=== PATIENT | female | born 1970 | race Caucasian/White ===

== ENCOUNTER 2020-06-24 16:57 | Emergency (ER) | payer BC, SELFPAY ==
[2020-06-24 17:16] VITALS: BP 121/81; PULSE 128; RESP 16; TEMP 36.3; O2SAT 100
--- NOTE | 2020-06-24 17:48 | ED.FEMALEGU ---
HPI - Female Genitourinary General Chief complaint: Urogenital-Female Stated complaint: bladder infection Source: patient Mode of arrival: ambulatory Limitations: no limitations History of Present Illness HPI Narrative: Patient is a 49-year-old female who presents complaining of urinary frequency, urgency and dysuria x2 days. She reports urine is cloudy. She reports a history of UTIs and is seen by urology. She reports last UTI over 3 months ago. She denies other complaints at this time MD elicited complaint: UTI Pertinent past history: recurrent UTIs Review of Systems Review of Systems: Narrative: CONSTITUTIONAL: Denies fever, chills, or sweats. EYES: Denies visual changes, redness, or discharge. ENT: Denies rhinorrhea, congestion, sore throat, or otalgia. CARDIOVASCULAR: Denies chest pain, palpitations, or edema. RESPIRATORY: Denies cough or dyspnea. GASTROINTESTINAL: Denies abdominal pain, nausea, vomiting, or diarrhea. GENITOURINARY: Frequency, urgency and dysuria x2 days SKIN: Denies rash or itching. MUSCULOSKELETAL: Denies back pain, joint pain, or myalgia. NEUROLOGIC: Denies headache, numbness, dizziness, or weakness. PSYCHIATRIC: Denies anxiety or depression. [facility] Past Medical History Medical History HTN (hypertension) Hypercholesterolemia Migraine UTI (urinary tract infection) Surgical History Surgical History H/O cystoscopy Family History Family History Other No significant family history Social History Social History (Updated 06/24/20 @ 17:53 by MAGDALENA Griggs) Smoking status: Never smoker Alcohol intake: never Substance use: never Living arrangements: with family Exam Narrative: Exam Narrative: GENERAL: Well-appearing, well-nourished, and in no acute distress. HEAD: Normocephalic, atraumatic. EYES: No redness or drainage. ENT: Mucous membranes pink and moist. CHEST: No respiratory distress. HEART: Regular rate and rhythm. No murmur appreciated. Normal peripheral pulses. EXTREMITIES: Normal range of motion. No edema. SKIN: Warm, dry, no rash. NEURO: No focal deficits. Alert and oriented x3. Gait steady. PSYCH: Normal affect. No signs of depression or anxiety. Course Vital Signs Vital signs: Vital Signs Temperature 36.3 C L 06/24/20 17:16 Pulse Rate 128 H 06/24/20 17:16 Respiratory Rate 16 06/24/20 17:16 Blood Pressure 121/81 06/24/20 17:16 Pulse Oximetry 100 06/24/20 17:16 Temperature 36.3 C L 06/24/20 17:16 Pulse Rate 128 H 06/24/20 17:16 Respiratory Rate 16 06/24/20 17:16 Blood Pressure 121/81 06/24/20 17:16 Pulse Oximetry 100 06/24/20 17:16 Reviewed MDM - Female Genitourinary MDM Narrative Medical decision making narrative: Patient's urine shows leukocytes and blood. Patient has a history of UTIs. Patient to be treated symptomatically at this time. Patient to follow-up with urologist or PCP in 5 days if symptoms persist. Patient is stable for discharge to home with outpatient follow-up as discussed. Differential Diagnosis Differential diagnosis: Likely urinary tract infection, vaginitis, cystitis and other (Pyelonephritis, kidney stone) Lab Data Labs: Urine Glucose Negative Reference Range: Negative Urine Bilirubin Negative Reference Range: Negative Urine Ketone Negative Reference Range: Negative Urine Specific [place] 1.025 Reference Range:1.001-1.035 Urine Blood Trace Reference Range: Negative * *
== END 2020-06-24 18:00 | disposition home or self-care (01) ==
PROVIDERS: Emergency Provider Nurse Practitioner; PCP Family Medicine Sports Medicine
DX: N30.00 Acute cystitis without hematuria (principal); I10 Essential (primary) hypertension; E78.00 Pure hypercholesterolemia, unspecified
CPT/HCPCS: 81003; 87077; 87086; 87088; 87186; 99213; G0463

== ENCOUNTER 2022-08-12 11:16 | Outpatient (CLI) | payer MEDICARE, BC, SELFPAY ==
[2022-08-12 19:47] LABS: Basophils Absolute Auto 0.1 K/mm3 (0.0-0.1); Basophils Percent Auto 1.2 % (0.2-1.2); Eosinophils Absolute Auto 0.2 K/mm3 (0-0.3); Eosinophils Percent Auto 2.6 % (0-4.4); Hematocrit 43.6 % (37.0-47.0); Immature Granulocyte Absolute 0.03 K/mm3 (0.00-0.031); Immature Granulocyte Percent A 0.4 % (0-0.5); Lymphocytes Absolute Auto 1.51 K/mm3 (0.9-3.2); Lymphocytes Percent Auto 21.7 % (18.3-44.2); Mean Corpuscular HGB Conc 32.1 g/dl (32-36); Mean Corpuscular Hemoglobin 29.2 pg (26-34); Mean Corpuscular Volume 90.8 fl (80-100); Mean Platelet Volume 9.4 fl (7.4-10.4); Monocytes Absolute Auto 0.6 K/mm3 (0.1-0.6); Monocytes Percent Auto 8.9 % (2.6-8.5); Neutrophils Absolute Auto 4.5 K/mm3 (1.3-6.7); Neutrophils Percent Auto 65.2 % (45.5-73.1); Platelet Count Result 445 k/mm3 (150-375); Red Cell Distribution Width 12.9 % (11.5-14.5)
[2022-08-12 21:25] LABS: Alanine Aminotransferase 27 U/L (6-35); Albumin Level 4.4 g/dL (3.5-5.1); Alkaline Phosphatase 126 U/L (38-126); Anion Gap 7 mmol/L (8-16); Aspartate Amino Transferase 51 U/L (14-36); Bilirubin,Total 0.3 mg/dL (0.2-1.3); Blood Urea Nitrogen 9 mg/dL (7-17); Carbon Dioxide 22 mmol/L (22-30); Chloride 105 mmol/L (98-107); Cholesterol 215 mg/dL (0-200); Estimated Glomerular Filt Rate > 60; Glucose 81 mg/dL (65-110); HDL Direct 66 mg/dL; Potassium 3.9 mmol/L (3.4-5.0); Sodium 134 mmol/L (137-145); Triglycerides 159 mg/dL (<150)
[2022-08-12 21:35] LABS: LDL Cholesterol Direct 109 mg/dL
== END 2022-08-12 11:17 | disposition home or self-care (01) ==
PROVIDERS: PCP Family Medicine; Visit Provider Family Medicine
DX: G43.909 Migraine, unspecified, not intractable, without status migrainosus (principal); E78.00 Pure hypercholesterolemia, unspecified; I10 Essential (primary) hypertension
CPT/HCPCS: 36415; 80053; 80061; 85025

== ENCOUNTER 2023-03-08 10:32 | Outpatient (CLI) | payer BC, MEDICARE, SELFPAY ==
[2023-03-08 19:51] LABS: Vitamin D 25 Hydroxy 43.8 ng/mL
[2023-03-08 20:03] LABS: Hepatitis B Surface Antigen Negative (Negative)
[2023-03-08 20:05] LABS: Alanine Aminotransferase 18 U/L (6-35); Albumin Level 4.4 g/dL (3.5-5.1); Alkaline Phosphatase 103 U/L (38-126); Anion Gap 11 mmol/L (8-16); Aspartate Amino Transferase 46 U/L (14-36); Bilirubin,Total 0.3 mg/dL (0.2-1.3); Blood Urea Nitrogen 12 mg/dL (7-17); Calcium 9.3 mg/dL (8.4-10.2); Carbon Dioxide 22 mmol/L (22-30); Chloride 102 mmol/L (98-107); Estimated Glomerular Filt Rate 59; Glucose 82 mg/dL (65-110); Magnesium 2.3 mg/dL (1.6-2.3); Potassium 4.3 mmol/L (3.4-5.0); Sodium 135 mmol/L (137-145)
[2023-03-08 20:09] LABS: HAV RESULT Negative (Negative); Hepatitis B Core IgM Result Negative (Negative)
[2023-03-08 20:20] LABS: Hepatitis C Virus Antibody Negative (Negative)
[2023-03-08 20:33] LABS: Hematocrit 44.3 % (37.0-47.0); Hemoglobin 14.1 g/dL (12.0-15.0); Mean Corpuscular HGB Conc 31.8 g/dl (32-36); Mean Corpuscular Hemoglobin 30.1 pg (26-34); Mean Corpuscular Volume 94.7 fl (80-100); Mean Platelet Volume 9.2 fl (7.4-10.4); Platelet Count Result 412 k/mm3 (150-375); Red Blood Count 4.68 M/mm3 (4.2-5.4); Red Cell Distribution Width 12.5 % (11.5-14.5); White Blood Count 6.4 K/mm3 (4.5-10.0)
== END 2023-03-08 10:33 | disposition home or self-care (01) ==
PROVIDERS: PCP Family Medicine; Visit Provider Family Medicine
DX: R74.01 Elevation of levels of liver transaminase levels (principal); E87.1 Hypo-osmolality and hyponatremia; G70.00 Myasthenia gravis without (acute) exacerbation; I10 Essential (primary) hypertension; E87.6 Hypokalemia; E66.9 Obesity, unspecified; G43.909 Migraine, unspecified, not intractable, without status migrainosus; F32.A Depression, unspecified; Z79.899 Other long term (current) drug therapy
CPT/HCPCS: 36415; 80053; 80074; 82306; 83735; 85027

== ENCOUNTER 2023-10-08 14:31 | Emergency (ER) | payer BC, MEDICARE, MEDICAID, SELFPAY ==
--- NOTE | ~2023-10-08 | XR_ITS ---
EXAMINATION: XR chest 2V DATE: 10/08/2023 15:02 INDICATION: Cough and chest congestion TECHNIQUE: frontal and lateral views of the chest were obtained. COMPARISON: None FINDINGS: The lungs are clear with no focal airspace opacities, pulmonary edema, pleural effusion or pneumothor ax. The cardiomediastinal silhouette is normal. Moderate midthoracic spondylosis with mild anterior w edging of a couple mid thoracic vertebral bodies. Electronic device external to the patient, anterior to the left breast projects over the heart on the frontal projection. IMPRESSION: 1. No acute cardiopulmonary disease. Reviewed, dictated and finalized at location B.
[2023-10-08 14:42] VITALS: BP 105/72; PULSE 104; RESP 18; TEMP 36.2; O2SAT 100
--- NOTE | 2023-10-08 14:43 | ED.URI ---
HPI - URI/Sore Throat General Chief Complaint: Upper Respiratory Infection Stated Complaint: Chest Congestion Time Seen by Provider: 10/08/23 14:43 Source: patient, RN notes reviewed and old records reviewed Mode of arrival: ambulatory Limitations: no limitations History of Present Illness HPI Narrative: 53-year-old female presents to the [facility] with complaints of chest congestion for about 1 week, states that today it feels like there is stuff rattling in her chest. Patient was concerned because she had atypical pneumonia that had her admitted to [facility] in [facility] in the month of July. Patient denies any chest pain, fevers. Onset (ago): week(s) (1) Treatments prior to arrival: none Related Data Home Medications Medication Instructions Recorded Confirmed galcanezumab-gnlm 120 mg/mL 120 mg subcut ONCE 06/24/20 09/09/23 subcutaneous syringe (Emgality) bupropion HCl 150 mg 24 hr tablet, 150 mg PO QAM 08/12/22 09/09/23 extended release estradiol 1 mg tablet (Estrace) 1 mg PO DAILY 08/12/22 09/09/23 sertraline 100 mg tablet 150 mg PO DAILY 08/04/23 09/09/23 metoprolol tartrate 25 mg tablet 6.25 mg PO BID 09/09/23 09/09/23 indomethacin 50 mg capsule mg 10/08/23 potassium chloride 20 mEq meq PO 10/08/23 tablet,extended release(part/cryst) (Klor-Con M) ubrogepant 100 mg tablet (Ubrelvy) mg 10/08/23 Allergies Allergy/AdvReac Type Severity Reaction Status Date / Time Aminoglycosides Allergy Anaphylaxis Verified 10/08/23 15:07 azithromycin Allergy Anaphylaxis Verified 10/08/23 15:07 Tetanus Vaccines and Toxoid Allergy Hives Verified 09/09/23 12:08 floxacins Allergy Anaphylaxis Uncoded 10/08/23 15:06 Review of Systems Review of Systems: All systems reviewed & are unremarkable except as noted in HPI and below Constitutional: Constitutional: Reports no additional constitutional complaints Eyes: Eyes: Reports no additional eye complaints ENT: Reports system reviewed and no additional complaints, except as documented Cardiovascular: Cardiovascular: Reports no additional cardiovascular complaints, Denies chest pain and Denies dyspnea Respiratory: Respiratory: Reports as per HPI, Reports chest congestion, Reports cough and Denies dyspnea Gastrointestinal: Gastrointestinal: Reports no additional gastrointestinal complaints, Denies abdominal pain, Denies nausea and Denies vomiting Musculoskeletal: Musculoskeletal: Reports no additional musculoskeletal complaints Integumentary/Breasts: Skin/Breast: Reports system reviewed and no additional complaints, except as docu Neurologic: Reports system reviewed and no additional complaints, except as documented Psychiatric: Psychiatric: Reports no additional psychiatric complaints Allergic/Immunologic: Allergic/Immunologic: Reports no additional allergic/immunologic complaints PMFSH Past Medical History Medical History HTN (hypertension) Hypercholesterolemia Migraine UTI (urinary tract infection) Surgical History Surgical History H/O cystoscopy Family History Family History Father Diabetes mellitus Heart disease Depression Mother Diabetes mellitus Hypertension Disorder of thyroid Breast cancer Sibling Diabetes mellitus Depression Hypertension Grandparent Cancer Grandparent Cancer Depression Heart disease History of ETOH abuse Other No significant family history Social History Social History Smoking status: Never smoker Alcohol intake: never Substance use: never Substance use type: does not use Lack of Transportation: No Lack of Food: Never True Current Housing: I Have Housing Concerned About Future Housing: No Difficulty Paying Gas/Electric Bills: No Difficulty Paying
== END 2023-10-08 15:31 | disposition home or self-care (01) ==
PROVIDERS: Emergency Provider Nurse Practitioner; PCP Family Medicine
DX: J40 Bronchitis, not specified as acute or chronic (principal); I10 Essential (primary) hypertension; E78.00 Pure hypercholesterolemia, unspecified
CPT/HCPCS: 71046; 99213; G0463